=== PATIENT | female | born 1970 | race Caucasian/White ===

== ENCOUNTER 2021-08-31 18:26 | Emergency (ER) | payer OTHER ==
[~2021-08-31 18:26] MED LIST: ABILIFY2 MG PO; BACTRIM DS TAB1 EACH PO; CLARITIN10 MG PO; COLACE100 MG PO; DITROPAN5 MG PO; FEOSOL325 MG PO; FOLIC ACID1 MG PO; IBUPROFEN800 MG PO; LIOTHYRONINE SO5 MCG PO; MACROBID100 MG PO; NAPROSYN500 MG PO; NORCO 5-325 TA1 EACH PO; PERCOCET 5-3251 EACH PO; POTASSIUM20 MEQ/11 PO; PREGABALIN25 MG PO; PYRIDIUM100 MG PO; SEROQUEL 25MG T25 MG PO; SINGULAIR10 MG PO; SYNTHROID25 MCG PO; VITAMIN D-32000 UNIT PO; ZOFRAN4 MG PO; ZOFRAN8 MG PO; ZYRTEC10 M3 PO
== END 2021-08-31 20:25 | disposition home or self-care (01) ==
LOC: FER 18:26
DX: S01.01XA Laceration without foreign body of scalp, initial encounter (principal); S00.511A Abrasion of lip, initial encounter; S60.511A Abrasion of right hand, initial encounter; Z23 Encounter for immunization; F17.210 Nicotine dependence, cigarettes, uncomplicated; W01.0XXA Fall on same level from slipping, tripping and stumbling without subsequent striking against object, initial encounter; Y92.009 Unspecified place in unspecified non-institutional (private) residence as the place of occurrence of the external cause
CPT/HCPCS: 90471; 90715

== ENCOUNTER → 2021-09-17 | Day surgery (SDC) | payer OTHER ==
[~2021-09-17] VITALS: Ht 175.3 cm; Wt 90.9 kg
[~2021-09-17] MED LIST changes: +DULOXETINE HCL20 MG PO
== END | disposition home or self-care (01) ==
LOC: FAS 08:35
DX: D12.6 Benign neoplasm of colon, unspecified (principal); K62.1 Rectal polyp; K64.8 Other hemorrhoids; K52.9 Noninfective gastroenteritis and colitis, unspecified; D50.9 Iron deficiency anemia, unspecified; R15.0 Incomplete defecation; M19.90 Unspecified osteoarthritis, unspecified site; E03.9 Hypothyroidism, unspecified; F17.200 Nicotine dependence, unspecified, uncomplicated; Z80.0 Family history of malignant neoplasm of digestive organs; Z91.011 Allergy to milk products; Z91.018 Allergy to other foods; Z91.048 Other nonmedicinal substance allergy status; Z91.013 Allergy to seafood
CPT/HCPCS: J1610; J2250; J2704; J7120

== ENCOUNTER → 2021-12-31 | Day surgery (SDC) | payer OTHER ==
[~2021-12-31] VITALS: Ht 175.3 cm; Wt 90.9 kg
[~2021-12-31] MED LIST changes: +MIRALAX17 GM PO; +NAPROXEN500 MG PO; +OXY-IR 5MG5 MG PO
== END | disposition home or self-care (01) ==
LOC: FAS 06:22
DX: K63.5 Polyp of colon (principal); K64.8 Other hemorrhoids; Z86.010 Personal history of colon polyps; Z80.0 Family history of malignant neoplasm of digestive organs; E03.9 Hypothyroidism, unspecified; K52.9 Noninfective gastroenteritis and colitis, unspecified; K59.09 Other constipation; K21.9 Gastro-esophageal reflux disease without esophagitis; E78.00 Pure hypercholesterolemia, unspecified; F17.200 Nicotine dependence, unspecified, uncomplicated; F12.90 Cannabis use, unspecified, uncomplicated; Z79.899 Other long term (current) drug therapy; Z91.018 Allergy to other foods; Z91.048 Other nonmedicinal substance allergy status; Z72.89 Other problems related to lifestyle
CPT/HCPCS: J1100; J1610; J2250; J2704; J7120